=== PATIENT | male | born 1970 | race Caucasian/White ===

== ENCOUNTER 2023-05-16 11:58 | Day surgery (SDC) | payer OTHER, SELFPAY ==
[2023-05-16] VITALS (10 sets, daily range): BP systolic 114–157; BP diastolic 64–83; BMI 31.1
[2023-05-16] MEDS: LOW STRENGTH ASPIRIN 324 MG PO (12:46)
[2023-05-16] MEDS: NSS 295 ML IV (12:47)
[2023-05-16 14:53] LABS: ACT-LR - POC 211 Seconds (116-155)
--- NOTE | 2023-05-16 15:20 | ITS.CL.CATH ---
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
Cardiac Catheterization
Procedure Report:
LEFT HEART CATHETERIZATION
Date of Procedure: 05/16/2023
Procedures performed:
1: Coronary angiography
2: Left ventricular hemodynamic assessment
Primary Care Physician: Dr. Donavon Mcbride
Primary Disc Pad Grinding Machine Feeder: Dr. Deandre Franco
INDICATION: The patient is a 52-year-old man with past medical history significant for hypertension hyperlipidemia who was recently found to have a markedly abnormal EKG consistent with a prior anterior [place]. He had been in the emergency room with
atypical chest discomfort in December and workup at that time was unremarkable for a recent [place] or acute coronary syndrome however EKG was noted to be abnormal. Since the ER that he has had no typical angina and actually completed a 5K in February.
Echocardiography performed on May 09 showed a visually estimated ejection fraction of 45 to 50% with a dense LAD infarct and LV apical thrombus which prompted cardiology referral. He is referred for coronary angiography today. Eliquis was
held after his last dose Friday.
ACCESS: The patient was prepped and draped in usual sterile fashion. A 6 Eritrean sheath was placed in the right radial artery using the Seldinger over the wire technique.
HEMODYNAMIC FINDINGS (mmHg):
LV(s/d,EDP): 140/14, 33
Ao(s/d,m): 140/77, 107
ANGIOGRAPHIC FINDINGS:
Single-plane Left Ventriculography in BERGER Projection: Not done with known LV apical thrombus. LV pressure was obtained by carefully crossing the aortic valve with a 6 Eritrean JR4 catheter and taking exquisite care to stay away from the mid and
distal ventricle.
Coronary Angiography:
Dominance: Left
Left Main: Normal
Left Anterior Descending: The left anterior descending artery is proximally occluded just after the first septal wheel worker. There is a ambiguous chronic total occlusion cap. Very faint left to left collaterals fill mostly a high diagonal. The
occlusion length appears to be over 20 mm. The LAD itself fills via very faint collaterals from the nondominant right.
Left Circumflex: The circumflex is a large-caliber dominant vessel that gives rise to a large first obtuse marginal branch which has a long smooth 50 to 60% mid stenosis with normal distal flow. The circumflex continues in the AV groove with mild
luminal irregularities with no evidence of obstructive disease. The distal vessel gives rise to 2 relatively large left-sided posterior left ventricular branches and a relatively small left-sided posterior descending artery. These vessels are
patent with only mild luminal irregularities and normal flow.
Right Coronary: The right coronary artery is medium caliber nondominant vessel that is patent and provides collaterals mostly from the RV marginal branch with faint filling of the LAD.
Fluoroscopy Time (min): 5.6
Radiation Dose (mGy): 528
DAP (Gy.cm2): 36
Closure device: None. A TR band was applied for hemostasis at the right wrist.
Complications: None.
ASSESSMENT:
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 The PACK WORKER SUPERVISOR cap is ambiguous and the occlusion length is long.
2: Elevated left ventricular filling pressures.
CONCLUSIONS and RECOMMENDATIONS:
1: Medical therapy for coronary artery disease, hypertension, hyperlipidemia, and LV systolic dysfunction with close clinical follow-up as planned.
2: Resume Eliquis 5 mg twice daily starting tomorrow for recently diagnosed LV apical thrombus.
3: Recommend formal exercise stress test with nuclear perfusion imaging to formally assess exercise capacity, symptomatology, and evidence for ischemia. Would consider either surgical revascularization or PCI attempt if significant viability with
ischemia was documented in this young patient.
Tracey House M.D.
Copy to: Dr. Donavon Mcbride
== END 2023-05-16 17:51 | disposition home or self-care (01) ==
LOC: CATH 11:58
PROVIDERS: ATTENDING PHYSICIAN Internal Medicine Interventional Cardiology; PRIMARYCARE PHYSICIAN Family Medicine; REFERRING PHYSICIAN Internal Medicine Cardiovascular Disease
DX: I25.10 Atherosclerotic heart disease of native coronary artery without angina pectoris (principal); I25.82 Chronic total occlusion of coronary artery; I10 Essential (primary) hypertension; E78.5 Hyperlipidemia, unspecified; R94.31 Abnormal electrocardiogram [ECG] [EKG]; K21.9 Gastro-esophageal reflux disease without esophagitis; Z87.891 Personal history of nicotine dependence; Z79.01 Long term (current) use of anticoagulants
CPT/HCPCS: 85347; 93454; 93458; Q9967

== ENCOUNTER 2023-09-11 13:22 | Emergency (ER) | payer OTHER, SELFPAY ==
[2023-09-11 13:24] VITALS: BP 140/89
[2023-09-11 13:50] LABS: % Basophils 0.6 % (0-2); % Eosinophils 5.2 % (0-6); % Immature Granulocytes 0.2 % (0-0.5); % Lymphocytes 29.4 % (20.5-51.1); % Monocytes 8.2 % (1.7-9.3); % Neutrophils 56.4 % (42.2-75.2); Absolute Eosinophils 0.3 10^3/uL (0-0.7); Absolute Lymphocytes 1.9 10^3/uL (1.2-3.4); Absolute Monocytes 0.5 10^3/uL (0.1-0.6); Absolute Neutrophils 3.7 10^3/uL (1.4-6.5); Hematocrit 44.1 % (39.0-52.0); Hemoglobin 14.3 g/dL (13.0-18.0); Mean Corp Hgb Conc. 32.4 g/dL (33.0-37.0); Mean Corpuscular Hgb 29.9 pg (27.0-31.0); Mean Corpuscular Volume 92.1 fL (80.0-94.0); Mean Platelet Volume 9.2 fL (7.4-10.4); Nucleated Red Blood Cells % 0 % (-); Platelet Count 222 10^3/uL (130-400); Red Blood Cell Count 4.79 10^6/uL (4.70-6.10); Red Cell Dist. Width 12.5 % (11.5-14.5); White Blood Cell Count 6.6 10^3/uL (4.8-10.8)
[2023-09-11 14:26] LABS: ALT (SGPT) 29 U/L (0-50); AST (SGOT) 27 U/L (17-59); Albumin 4.8 g/dl (3.5-5.0); Alkaline Phosphatase 57 U/L (38-126); Blood Urea Nitrogen 17 mg/dl (9-20); Calcium 9.2 mg/dl (8.4-10.2); Carbon Dioxide 28 mmol/L (22-30); Chloride 102 mmol/L (98-107); Glucose 96 mg/dl (70-99); Lipase 130 U/L (23-300); Potassium 4.6 mmol/L (3.5-5.1); Sodium 138 mmol/L (135-145); Total Bilirubin 0.5 mg/dl (0.2-1.3); Total Protein 7.5 g/dl (6.3-8.2); eGFR > 60.00
--- NOTE | 2023-09-11 15:28 | ED.GENMED ---
History of Present Illness
General
Chief Complaint: Abdominal Pain
Source: patient
Time Seen by Provider: 09/11/23 15:03
Travel History
Have you had any contact with someone who has COVID-19?: No
Do you have any symptoms of coronavirus? Fever > 100 degrees, chills, cough, shortness of breath, sore throat, loss of taste or smell, muscle aches, or headache?: No
History of Present Illness
History of Present Illness:
53-year-old male presents to the emergency room complaining of right lower quadrant abdominal pain. Patient began feeling unwell about 4 days ago. He had a fever of 101, and congestion. He also developed some diffuse abdominal pain. Over the
next couple days the abdominal pain continued and today seems to have migrated to the right lower quadrant. He noted yesterday the pain was worse with walking down steps. No diarrhea. No nausea or vomiting. Patient denies any previous abdominal
surgery. He does have a significant cardiac history and does take Eliquis.
Past History
Past History
ED Past Medical History: HTN, Hypercholesterolemia, Psychiatric (ADD, anxiety) and Other (Seasonal allergies)
ED Past Surgical History: Orthopedic (Left ring digit trigger finger release)
Social History
Tobacco: Non-smoker
Alcohol: Occasional
Drug: None
Personal:
Living: with family
Employment: Employed
Family History
Family History: Other (Noncontributory)
Phy Exam
Physical Exam
Physical Exam:
General: Awake, Alert, Oriented X3. No acute distress.
Vitals: unremarkable
Head: Atraumatic
Eyes: Pupils equal, EOMI
Throat: Airway intact, no exudates
Neck: Trachea midline
Lungs: Clear and equal b/l
Heart: Regular rate, no murmurs
Abd: Soft, mod tenderness RLQ, no rebound, mild guarding, No pulsatile mass
Neuro: nonfocal
Skin: Warm, dry, no rash
Extremities: pulses equal b/l, no edema
Course
Orders/Labs/Results
Orders:
Orders
09/11/23 13:29
Electrocardiogram (*1) Urgent
Reason for Study: Abdominal Pain
EKG- Treatment ONCE
09/11/23 13:39
Complete Blood Count/With Diff Urgent
Comprehensive Metabolic Panel Urgent
Lipase Urgent
09/11/23 15:27
CT Abd/Pel (IV only)-DH only Urgent
Comment:
Reason For Exam: rlq abd pain
0.9% Sodium Chloride 500 ml [Nss] 500 ml IV BOLUS
09/11/23 15:45
COVID-19 Antigen Urgent
Source: Nasal Swab
Influenza A+B Rapid Molecular Urgent
AJIT Source: Nasal Swab
Specimen Description:
09/11/23 16:28
Acetaminophen [Tylenol] 1,000 mg .ROUTE .STK-MED ONE
09/11/23 16:29
Acetaminophen [Tylenol] 1,000 mg PO NOW STA
09/11/23 16:33
Urinalysis Reflex To Culture Urgent
Date Specimen was Collected: 09/11/23
Time Specimen was Collected: 16:18
Abnormal Lab Results
09/11/23
13:39
MCHC 32.4 L g/dL
(33.0-37.0)
09/11/23 13:39
09/11/23 13:39
Vital Signs
Initial and Last Documented VS:
Initial Vital Signs
Temp Pulse Resp BP Pulse Ox
98 F 60 16 140/89 98
09/11/23 13:24 09/11/23 13:24 09/11/23 13:24 09/11/23 13:24 09/11/23 13:24
Last Documented Vital Signs
Temp Pulse Resp BP Pulse Ox
98 F 60 16 127/81 98
09/11/23 13:24 09/11/23 13:24 09/11/23 13:24 09/11/23 17:00 09/11/23 17:15
MDM/Problems Addressed
Differential Diagnosis Includes:
appy, kidney stone, mesenteric adenitis,
MDM/Problems Addressed:
CT shows no acute abnormality. Labs are unremarkable. Perhaps postviral adenopathy causing his abdominal pain. Constipation also a possibility. Patient stable for discharge home. Recommend he return to the emergency room if no better in 48 to
72 hours or if he is feeling worse she should come back right away.
*Radiology
Radiology exam reviewed: radiology read reviewed
*Pulse Oximetry
Patient hypoxic: no
*EKG
Interpreted by ED Provider?: Yes
Interpretation: abnormal
Heart Rate: 61
Rate: normal
Rhythm: sinus
QRS Pattern: other (Q waves noted lead III, V1, V2, V3)
*Dipper Operator Interpretation
Rate: normal
Interpretation: normal
Rhythm: sinus
*Critical Care Note
Total Time (30-74mins, 75-104mins- exclusive of procedures): Not Applicable
ED Attending Note
-
Portions of this chart may have been created with voice recognition software.� Occasional wrong word or��sound alike� substitutions may have occurred due to the inherent limitations of voice recognition software.
Discharge Plan
Departure
Patient Disposition: Home (Routine Discharge)
Date of Disposition: 09/11/23
Time of Disposition: 17:26
Patient with high blood pressure during this ER visit?: No
Condition: Good
Discharge Problem:
Abdominal pain
Instructions: Abdominal Pain
Prescriptions:
No Action
citalopram 20 MG tablet
20 mg PO DAILY
omeprazole magnesium [Prilosec OTC] 20 MG tablet,delayed release (DR/EC)
20 mg PO DAILY
albuterol sulfate 1 PUFF HFA aerosol inhaler
2 puff inhalation R Q4HPRN PRN (Reason: shortness of breath) Qty: 1 0RF
rosuvastatin [Crestor] 20 mg Tablet
20 mg PO DAILY
losartan 50 mg Tablet
50 mg PO DAILY
metoprolol succinate 25 mg Tablet Extended Release 24 Hr
25 mg PO DAILY
Eliquis 5 mg Tablet
5 mg PO BID
Referrals:
Donavon Mcbride DO [Family Provider] -
Activity Restrictions/Additional Instructions:
Your CAT scan does not show any evidence of a abnormal process in your abdomen. Return to the emergency room if you are feeling no better in the next 24 to 40 hours or if you are feeling worse.
Interventions
Interventions:
*Risk Screen - Suicide Last Done: 09/11/23 13:24
*General Assessment Last Done: 09/11/23 13:24
*Neglect/Abuse Screening Last Done: 09/11/23 13:24
ED- Fall Risk Assessment Last Done: 09/11/23 15:54
*ED COVID-19 Vaccine History Last Done: 09/11/23 17:39
*Nursing Disposition Last Done: 09/11/23 17:39
ZI-Zgmouv-Xonddiwffn Assessment Last Done: 09/11/23 15:54
Discharge Date and Time
Discharge Date/Time: 09/11/23 17:41
Print Language: MAORI
[2023-09-11] MEDS: NSS 500 IV (15:42)
[2023-09-11 16:05] VITALS: BP 129/85
[2023-09-11 16:18] LABS: COVID-19 Antigen Negative (Negative)
[2023-09-11] MEDS: TYLENOL 1000 MG PO (16:29)
[2023-09-11 16:41] LABS: Urine Albumin Negative (Neg - Trace); Urine Bilirubin Negative (Negative); Urine Character Clear (Clear); Urine Color Yellow; Urine Glucose Negative (Negative); Urine Ketone Negative (Negative); Urine Leukocyte Negative (Negative); Urine Nitrite Negative (Negative); Urine Occult Blood Negative (Negative); Urine Specific Gravity 1.005 (<1.030); Urine Urobilinogen Negative (Neg - 1+)
[2023-09-11 17:00] VITALS: BP 127/81
== END 2023-09-11 17:41 | disposition home or self-care (01) ==
LOC: EMR 13:22
PROVIDERS: Student in an Organized Health Care Education/Training Program; EMERGENCY PHYSICIAN Emergency Medicine; FAMILY PHYSICIAN Family Medicine
DX: R10.31 Right lower quadrant pain (principal); I10 Essential (primary) hypertension; E78.00 Pure hypercholesterolemia, unspecified
CPT/HCPCS: 99284; 74177; 80053; 81003; 83690; 85025; 87502; 87811; 93005; Q9967

== ENCOUNTER 2024-02-11 16:50 | Emergency (ER) | payer OTHER, SELFPAY ==
[2024-02-11 16:57] VITALS: BP 129/74
[2024-02-11 17:17] LABS: % Basophils 0.4 % (0-2); % Eosinophils 4.1 % (0-6); % Immature Granulocytes 0.2 % (0-0.5); % Lymphocytes 32.4 % (20.5-51.1); % Monocytes 8.7 % (1.7-9.3); % Neutrophils 54.2 % (42.2-75.2); Absolute Eosinophils 0.2 10^3/uL (0-0.7); Absolute Lymphocytes 1.8 10^3/uL (1.2-3.4); Absolute Monocytes 0.5 10^3/uL (0.1-0.6); Absolute Neutrophils 3.1 10^3/uL (1.4-6.5); Hematocrit 40.2 % (39.0-52.0); Hemoglobin 13.7 g/dL (13.0-18.0); Mean Corp Hgb Conc. 34.1 g/dL (33.0-37.0); Mean Corpuscular Hgb 29.9 pg (27.0-31.0); Mean Corpuscular Volume 87.8 fL (80.0-94.0); Mean Platelet Volume 9.4 fL (7.4-10.4); Nucleated Red Blood Cells % 0 % (-); Platelet Count 202 10^3/uL (130-400); Red Blood Cell Count 4.58 10^6/uL (4.70-6.10); Red Cell Dist. Width 12.9 % (11.5-14.5); White Blood Cell Count 5.6 10^3/uL (4.8-10.8)
[2024-02-11 17:27] LABS: ALT (SGPT) 24 U/L (0-50); AST (SGOT) 23 U/L (17-59); Albumin 4.7 g/dl (3.5-5.0); Alkaline Phosphatase 37 U/L (38-126); Blood Urea Nitrogen 22 mg/dl (9-20); Calcium 9.7 mg/dl (8.4-10.2); Carbon Dioxide 30 mmol/L (22-30); Chloride 101 mmol/L (98-107); Glucose 110 mg/dl (70-99); Potassium 4.6 mmol/L (3.5-5.1); Sodium 142 mmol/L (135-145); Total Bilirubin 0.4 mg/dl (0.2-1.3); eGFR > 60.00
[2024-02-11 17:45] LABS: Troponin I < 0.012 ng/ml
[2024-02-11 19:07] VITALS: BP 124/79
--- NOTE | 2024-02-11 19:26 | ED.GENMED ---
History of Present Illness
General
Chief Complaint: Chest Pain
Source: patient, records and spouse
Time Seen by Provider: 02/11/24 19:07
History of Present Illness
History of Present Illness:
53-year-old male with a complex prior medical history including clot chronic occlusion of the proximal LAD and an LV thrombus, closely followed by cardiology, compliant with medications, who notes worsening of his usual 'heartburn' symptoms since
Friday. He typically feels it in the chest area, and takes a PPI for this. However, since Friday he notes it has been a little bit more intense and also seems to originate just inferior to the chest in the epigastric area and traveling
superiorly. He notes it seems to be less when he is distracted and just does not notice it, and definitely worse when he drinks coffee. He is eating and drinking as usual and denies associated nausea, vomiting, anorexia, fever, chills, dyspnea,
leg swelling, back pain, neck pain, headache, dizziness, abdominal pain, or other complaints.
Past History
Past History
ED Past Medical History: HTN, Hypercholesterolemia, Psychiatric (ADD, anxiety) and Other (Seasonal allergies, LV thrombus, chronic occlusion of proximal LAD)
ED Past Surgical History: Orthopedic (Left ring digit trigger finger release)
Social History
Tobacco: Non-smoker
Alcohol: Occasional
Drug: None
Personal:
Living: with family
Employment: Employed
Family History
Family History: Other (Noncontributory)
Phy Exam
Physical Exam
Physical Exam:
GENERAL: Alert , in no apparent distress
EYE: pupils equal and reactive
NECK: Supple, no significant adenopathy.
ENT: o/p clr, mmm.
CARDIAC: Regular rate and rhythm .
LUNGS: Clear breath sounds bilaterally, no acute respiratory distress, no wheezes/rales/rhonchi
ABDOMEN: Soft, without focal tenderness, no r/g, no cvat
NEUROLOGICAL: Alert and oriented, no focal neuro deficits
SKIN: Warm and dry, skin intact.
MUSCULOSKELETAL: No edema, well perfused.
PSYCH: Normal and appropriate interaction.
Scores
Heart Score for Chest Pain Patients
STEMI patient?: Not applicable
Course
Orders/Labs/Results
Orders:
Orders
02/11/24 16:52
Electrocardiogram (*1) Urgent
Reason for Study: Chest Pain
EKG- Treatment ONCE
02/11/24 17:07
CMP [Comprehensive Metabolic Panel] Urgent
Complete Blood Count/With Diff Urgent
Troponin I Urgent
02/11/24 20:06
Troponin I Urgent
02/11/24 20:11
Mag Hydrox/Al Hydrox/Simeth [Maalox] 30 ml .ROUTE .STK-MED ONE
Phenobarb/Hyoscy/Atropine/Scop [] 10 ml .ROUTE .STK-MED ONE
02/11/24 20:13
Viscous Lidocaine 2% [Xylocaine Viscous Cup] 15 ml .ROUTE .STK-MED ONE
02/11/24 20:20
Mag Hydrox/Al Hydrox/Simeth [Maalox] 30 ml Phenobarb/Hyoscy/Atropine/Scop [] 10 ml Viscous Lidocaine 2% [Xylocaine Viscous Cup] 10 ml PO NOW
Abnormal Lab Results
02/11/24
17:07
RBC 4.58 L 10^6/uL
(4.70-6.10)
BUN 22 H mg/dl
(9-20)
Glucose 110 H mg/dl
(70-99)
Alkaline Phosphatase 37 L U/L
(38-126)
02/11/24 17:07
02/11/24 17:07
Vital Signs
Initial and Last Documented VS:
Initial Vital Signs
Temp Pulse Resp BP Pulse Ox
98.3 F 72 18 129/74 98
02/11/24 16:57 02/11/24 16:57 02/11/24 16:57 02/11/24 16:57 02/11/24 16:57
Last Documented Vital Signs
Temp Pulse Resp BP Pulse Ox
98.3 F 61 14 122/84 95
02/11/24 16:57 02/11/24 20:30 02/11/24 20:30 02/11/24 20:00 02/11/24 20:30
*Critical Care Note
Total Time (30-74mins, 75-104mins- exclusive of procedures): Not Applicable
Update Note
Update Note:
Patient presents to the Emergency Department with ____'heartburn'
Number and Complexity of Problems Addressed at the Encounter
� Chronic conditions affecting care:
� Acute Exacerbation and/or Progression of Chronic Illness:
� Differential Diagnosis includes: But not limited to exacerbation of chronic reflux, gastritis, ACS, etc. etc.
Amount and/or Complexity of Data to be Reviewed and Analyzed
� I performed an independent evaluation of and my interpretation is:
EKG: Read by me normal sinus rhythm, normal rate, normal axis, chronic Q waves noted anteriorly which are unchanged from prior
CT:
Xrays:
Laboratory Studies: Unremarkable
Other:
� Review of other/old records reveals: Patient had an echo April 2023 with an EF of 45 to 50%, noted LAD infarct and LV thrombus. 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
� Clinical information was obtained by an independent historian: who is bedside
� Prescriptions/Medications Considered but not given: Discussed with patient option for medications related to his reflux symptoms but he declines at this time stating his symptoms are minimal and he just wanted to make sure his
heart is okay.
� Further testing considered but not performed:
Risk of Complications and/or Morbidity or Mortality of Patient Management
� Social determinants of health affecting care: Strong social support with , close follow-up with cardiology in fact scheduled for Friday
� Discussion with other providers (PCP, Hospitalists, Consultants, etc):
� Escalation of care including admission/observation vs risk of discharge considered:REPEAT TROP WNL. PT EXTREMELY WELL APPEARING, ECG UNCHANGED, TROP TIMES TWO WNL, HIGHLY DOUBT ACS. NO ABD SIGNS/SXS TO SUGGEST
DISSECTIN/AAA/NEIL, ETC. D/W PT IMPORT OF F/U AND RAESONS TO RTED.
ED Attending Note
-
Portions of this chart may have been created with voice recognition software.� Occasional wrong word or��sound alike� substitutions may have occurred due to the inherent limitations of voice recognition software.
Discharge Plan
Departure
Patient Disposition: Home (Routine Discharge)
Date of Disposition: 02/11/24
Time of Disposition: 20:44
Patient with high blood pressure during this ER visit?: Yes
Condition: Good
Discharge Problem:
Acid reflux
Instructions: BLOOD PRESSURE, Acid Reflux and GERD in Adults (DC)
Prescriptions:
No Action
citalopram 20 MG tablet
20 mg PO DAILY
omeprazole magnesium [Prilosec OTC] 20 MG tablet,delayed release (DR/EC)
20 mg PO DAILY
albuterol sulfate 1 PUFF HFA aerosol inhaler
2 puff inhalation R Q4HPRN PRN (Reason: shortness of breath) Qty: 1 0RF
rosuvastatin [Crestor] 20 mg Tablet
20 mg PO DAILY
losartan 50 mg Tablet
50 mg PO DAILY
metoprolol succinate 25 mg Tablet Extended Release 24 Hr
25 mg PO DAILY
Eliquis 5 mg Tablet
5 mg PO BID
Referrals:
Deep Pike MD [Family Provider] - Next open appointment
Activity Restrictions/Additional Instructions:
SEE YOUR STRATIGRAPHY TEACHER SCHEDULED ON FRIDAY. IF YOU DEVELOP INCREASING/NEW/PERSISTENT HEARTBURN SYMPTOMS, NEW CHEST PAIN/DISCOMFORT, ANY TROUBLE BREATHING, DIZZINESS, SWELLING, OR OTHER WORRISOME SIGNS, GO TO THE ER IMMEDIATELY!! PLEASE SEE YOUR
GI DOCTOR IN CLOSE FOLLOW UP.
Interventions
Interventions:
*Risk Screen - Suicide Last Done: 02/11/24 20:40
*General Assessment Last Done: 02/11/24 16:57
*Neglect/Abuse Screening Last Done: 02/11/24 20:40
ED- Cardiac Assessment Last Done: 02/11/24 20:40
Discharge Date and Time
Print Language: BULGARIAN
[2024-02-11 20:00] VITALS: BP 122/84
[2024-02-11] MEDS: MAALOX 50 PO (20:23)
[2024-02-11 20:37] LABS: Troponin I < 0.012 ng/ml
[2024-02-11 21:00] VITALS: BP 129/87
== END 2024-02-11 21:21 | disposition home or self-care (01) ==
LOC: EMR 16:50
PROVIDERS: Emergency Medicine; EMERGENCY PHYSICIAN Emergency Medicine; FAMILY PHYSICIAN Psychiatry & Neurology Neurology
DX: K21.9 Gastro-esophageal reflux disease without esophagitis (principal); E78.00 Pure hypercholesterolemia, unspecified; I10 Essential (primary) hypertension
CPT/HCPCS: 99284; 80053; 84484; 85025; 93005

== ENCOUNTER 2024-10-13 10:58 | Emergency (ER) | payer OTHER, SELFPAY ==
[2024-10-13 11:01] VITALS: BP 152/89
[2024-10-13 11:45] VITALS: BP 138/70
[2024-10-13 11:46] VITALS: BMI 34.1
[2024-10-13 12:00] VITALS: BP 122/67
--- NOTE | 2024-10-13 12:10 | ED.GENMED ---
History of Present Illness
General
Chief Complaint: Chest Pain
Source: patient
Exam Limitations: none
Time Seen by Provider: 10/13/24 11:44
Nursing documentation reviewed up to this point in time: agreed with
History of Present Illness
History of Present Illness:
The patient is a 54-year-old male who presents with pain in the right side of the chest, which started a few days ago. The pain feels muscular and appears to be intermittent rather than constant. Worse with certain movements. The patient associates
the onset of symptoms two days after pressure washing his home, which he performed 3 and 4 days ago. He denies any trouble breathing, abdominal pain, nausea, vomiting, diarrhea, or other systemic symptoms.
The patient has a significant medical history of a previous heart attack, which was detected on an electrocardiogram, and a 100% blockage in the left anterior descending artery (LAD). He states that no intervention was pursued as he is not showing
symptoms currently.
Meds:
- Citalopram 20 mg
- Rosuvastatin (Crestor) 20 mg
- Apixaban (Eliquis) 5 mg
- Losartan Potassium 50 mg
- Meloxicam 7.5 mg
- Omeprazole 20 mg
- Fluticasone nasal spray 0.1%
- Diphenhydramine 25 mg as needed
Past History
Past History
ED Past Medical History: HTN, Hypercholesterolemia, [place], Psychiatric (ADD, anxiety) and Other (Seasonal allergies, LV thrombus, chronic occlusion of proximal LAD)
ED Past Surgical History: Orthopedic (Left ring digit trigger finger release)
Social History
Tobacco: Non-smoker
Alcohol: Occasional
Drug: None
Personal:
Living: with family
Employment: Employed
Family History
Family History: Other (Noncontributory)
Review of Systems
Review of Systems
Allergies reviewed?: Yes
All Other Systems: ROS reviewed and negative except as documented in HPI and ROS
Constitutional: Denies fatigue
Respiratory: Denies trouble breathing
Cardiac: Reports chest pain; Denies diaphoresis or palpitations
ABD/GI: Denies abdominal pain or nausea
Musculoskeletal: Reports back pain and other (pain right chest)
Skin: Reports no symptoms
Neurological: Reports no symptoms
Phy Exam
Physical Exam
Physical Exam:
GENERAL: No acute distress. A&Ox3.
CONSTITUTIONAL: Afebrile.
EYES: clear, conjunctivae normal
ENMT: moist mucus membranes, Pharynx nl
RESPIRATORY: Regular respirations, nonlabored, lungs clear.
CARDIOVASCULAR: Regular rate and rhythm, no murmurs, no rubs.
GI: Soft, nontender, normal BS
MUSCULOSKELETAL: Moves with ease. Well perfused.
SKIN: Warm, dry, pink
PSYCH: Normal mood and affect. Well kept, interactive and appropriate
NEUROLOGIC: Awake, alert and oriented. No focal neurological deficits
Scores
Heart Score for Chest Pain Patients
STEMI patient?: Not applicable
Course
Orders/Labs/Results
Orders:
Orders
10/13/24 11:00
Electrocardiogram (*1) Urgent
Reason for Study: Chest Pain
EKG- Treatment ONCE
10/13/24 12:15
Complete Blood Count/With Diff Urgent
Comprehensive Metabolic Panel Urgent
Troponin I Urgent
Abnormal Lab Results
10/13/24
12:15
RBC 4.42 L 10^6/uL
(4.70-6.10)
Monocytes % 9.7 H %
(1.7-9.3)
10/13/24 12:15
10/13/24 12:15
Vital Signs
Initial and Last Documented VS:
Initial Vital Signs
Temp Pulse Resp BP Pulse Ox
98.2 F 70 16 152/89 98
10/13/24 11:01 10/13/24 11:01 10/13/24 11:01 10/13/24 11:01 10/13/24 11:01
Last Documented Vital Signs
Temp Pulse Resp BP Pulse Ox
98.2 F 62 16 122/67 97
10/13/24 11:01 10/13/24 13:15 10/13/24 12:45 10/13/24 12:00 10/13/24 13:15
MDM/Problems Addressed
Differential Diagnosis Includes:
Musculoskeletal strain, [place]
MDM/Problems Addressed:
The patient is a 54-year-old male who presents with pain in the right side of the chest, which started a few days ago. The pain feels muscular and appears to be intermittent rather than constant. Worse with certain movements. The patient associates
the onset of symptoms two days after pressure washing his home, which he performed 3 and 4 days ago. He denies any trouble breathing, abdominal pain, nausea, vomiting, diarrhea, or other systemic symptoms.
The patient has a significant medical history of a previous heart attack, which was detected on an electrocardiogram, and a 100% blockage in the left anterior descending artery (LAD). He states that no intervention was pursued as he is not showing
symptoms currently.
EKG NSR
Plan:
- blood tests to check troponin levels to rule out any cardiac event, assess electrolyte balance, kidney, and liver functions. Results are pending.
- Encourage hydration, especially with electrolyte solutions, given the outdoor physical activity.
1:00 p.m.
CBC normal, CMP normal
Troponin normal
Most likely musculoskeletal pain.
*Pulse Oximetry
SaO2: 93
Oxygen Mode of Delivery: Room air
Patient hypoxic: no
*EKG
EKG Intrepretation Date: 10/13/24
Interpretation: normal
Heart Rate: 67
Rate: normal
Rhythm: sinus
Atl[place]: normal axis
Interval: normal interval
QRS Pattern: normal QRS
Ischemia: no ischemia
*Critical Care Note
Total Time (30-74mins, 75-104mins- exclusive of procedures): Not Applicable
ED Attending Note
-
Portions of this chart may have been created with voice recognition software.� Occasional wrong word or��sound alike� substitutions may have occurred due to the inherent limitations of voice recognition software.
Discharge Plan
Departure
Patient Disposition: Home (Routine Discharge)
Date of Disposition: 10/13/24
Time of Disposition: 13:06
Patient with high blood pressure during this ER visit?: No
Condition: Good
Discharge Problem:
Atypical chest pain, Muscle strain of chest wall
Instructions: Chest Pain That Is Not Caused by the Heart (DC), Back Muscle Strain
Prescriptions:
No Action
citalopram 20 MG tablet
20 mg PO DAILY
omeprazole magnesium [Prilosec OTC] 20 MG tablet,delayed release (DR/EC)
20 mg PO DAILY
albuterol sulfate 1 PUFF HFA aerosol inhaler
2 puff inhalation R Q4HPRN PRN (Reason: shortness of breath) Qty: 1 0RF
rosuvastatin [Crestor] 20 mg Tablet
20 mg PO DAILY
losartan 50 mg Tablet
50 mg PO DAILY
metoprolol succinate 25 mg Tablet Extended Release 24 Hr
25 mg PO DAILY
Eliquis 5 mg Tablet
5 mg PO BID
Referrals:
Donavon Mcbride DO [Family Provider, Family Practice] - As needed
Activity Restrictions/Additional Instructions:
As we discussed, your workup here today shows nothing worrisome. Specifically no sign of a heart attack
This is most likely musculoskeletal pain from power washing her house
Tylenol as needed for pain, avoid strenuous activity until symptoms are better
See your doctor for recheck if you are not a lot better in 1 week or not 100% better in 2 weeks.
Return here immediately for any chest pain that is associated with feeling dizzy or lightheaded, breaking out in a sweat, feeling nauseous or weak or feeling sicker in any way
Interventions
Interventions:
*Risk Screen - Suicide Last Done: 10/13/24 11:01
*General Assessment Last Done: 10/13/24 11:47
*Neglect/Abuse Screening Last Done: 10/13/24 11:04
*ED- Fall Risk Assessment Last Done: 10/13/24 11:47
*ED COVID-19 Vaccine History Last Done: 10/13/24 11:47
*Nursing Disposition Last Done: 10/13/24 13:26
ED- Cardiac Assessment Last Done: 10/13/24 11:47
Discharge Date and Time
Discharge Date/Time: 10/13/24 13:27
Print Language: TURKMEN
[2024-10-13 12:29] LABS: Hematocrit 39.8 % (39.0-52.0); Hemoglobin 13.5 g/dL (13.0-18.0); Mean Corp Hgb Conc. 33.9 g/dL (33.0-37.0); Mean Corpuscular Volume 90.0 fL (80.0-94.0); Nucleated Red Blood Cells % 0 % (-); Platelet Count 187 10^3/uL (130-400); Red Cell Dist. Width 12.5 % (11.5-14.5)
[2024-10-13 12:52] LABS: ALT (SGPT) 26 U/L (0-50); AST (SGOT) 27 U/L (17-59); Albumin 4.5 g/dl (3.5-5.0); Alkaline Phosphatase 42 U/L (38-126); Blood Urea Nitrogen 14 mg/dl (9-20); Calcium 9.3 mg/dl (8.4-10.2); Carbon Dioxide 28 mmol/L (22-30); Chloride 107 mmol/L (98-107); Estimated Creatinine Clearance 109 ml/min; Glucose 95 mg/dl (70-99); Potassium 5.0 mmol/L (3.5-5.1); Sodium 139 mmol/L (135-145); Total Protein 7.0 g/dl (6.3-8.2); eGFR > 60.00
[2024-10-13 12:56] LABS: Troponin I < 0.012 ng/ml
== END 2024-10-13 13:27 | disposition home or self-care (01) ==
LOC: EMR 10:58
PROVIDERS: Registered Nurse; EMERGENCY PHYSICIAN Emergency Medicine; FAMILY PHYSICIAN Family Medicine
DX: S29.011A Strain of muscle and tendon of front wall of thorax, initial encounter (principal); X58.XXXA Exposure to other specified factors, initial encounter; Y93.H9 Activity, other involving exterior property and land maintenance, building and construction; E78.00 Pure hypercholesterolemia, unspecified; I10 Essential (primary) hypertension; I25.2 Old myocardial infarction
CPT/HCPCS: 99284; 80053; 84484; 85025; 93005; 99283

== ENCOUNTER → 2024-11-30 11:54 | Outpatient (REF) | payer OTHER, SELFPAY | LOC: RAD 11:54 | PROVIDERS: ATTENDING PHYSICIAN Family Medicine | DX: R07.89 Other chest pain (principal) | CPT/HCPCS: 71046 ==

== ENCOUNTER → 2024-12-24 10:38 | Outpatient (REF) | payer OTHER, SELFPAY | LOC: RAD 10:38 | PROVIDERS: ATTENDING PHYSICIAN Physician Assistant; FAMILY PHYSICIAN Family Medicine | DX: S05.50XA Penetrating wound with foreign body of unspecified eyeball, initial encounter (principal) | CPT/HCPCS: 70030 ==